=== PATIENT | female | born 2005 | race African-American/Black ===

== ENCOUNTER 2024-05-19 17:39 | Emergency (ER) | payer MEDICAID, SELFPAY ==
--- NOTE | ~2024-05-19 | XR_ITS ---
HISTORY: pain injury during step class. pain right 5th metacarpal COMPARISON: None TECHNIQUE: 3 views of the left hand were performed. FINDINGS: No acute fracture is identified. The joint spaces are preserved. The carpal arcs are intact. Bone mineralization is unremarkable. No significant soft tissue swelling. No radiopaque foreign body is identified. IMPRESSION: No acute fracture or dislocation within the left hand, as detailed above. Reviewed, dictated and finalized at location A. OSING MACHINE OPERATOR/TENDER
[2024-05-19 17:57] VITALS: BP 105/73; PULSE 66; RESP 16; TEMP 37.3; O2SAT 100
--- NOTE | 2024-05-19 17:58 | ED.GENADULT ---
HPI - General Adult General Chief complaint: Extremity Injury, Upper Stated complaint: INJURD R HAND Source: patient Mode of arrival: ambulatory Limitations: no limitations History of Present Illness HPI narrative: 18 y/o female presented for c/o right thumb pain and swelling after falling today at 1330. States she landed on the top of the hand. Denies pain at rest, rates 8/10 with movement. Denies bruising, deformity, numbness, tingling or weakness. Related Data Home Medications ?Medication ?Instructions ?Recorded ?Confirmed ?Last Taken ?Type cetirizine 10 mg tablet mg 05/19/24 Unknown History cholecalciferol (vitamin D3) 1,250 05/19/24 Unknown History mcg (50,000 unit) capsule hydroxyzine HCl 25 mg tablet mg 05/19/24 Unknown History Allergies Allergy/AdvReac Type Severity Reaction Status Date / Time No Known Allergies Allergy Verified 05/19/24 17:52 Review of Systems Review of Systems: CONSTITUTIONAL: Denies body aches, fever, chills CARDIOVASCULAR: Denies chest pain, palpitations, or edema. RESPIRATORY: Denies cough or dyspnea. SKIN: Denies wounds. MUSCULOSKELETAL: reports right thumb pain NEUROLOGIC: Denies numbness, tingling, or weakness. All systems reviewed & are unremarkable except as noted in HPI and below PMFSH Comments At time of signature, I have reviewed and agree with nursing past medical, surgical, social and family history unless otherwise noted. Please see nursing chart for further information. There is no relevant family history pertinent to the presenting complaint Exam Narrative: GENERAL: Well-appearing CHEST: Speaks in full sentences. No respiratory distress. HEART: Regular rate and rhythm. Normal and equal peripheral pulses. EXTREMITIES: right hand has normal strength and sensation. Right thumb has decreased range of motion due to pain with minimal movement; tender with light palpation over the skin. tenderness to 1st metacarpal area. No ecchymosis, No open wounds, or obvious deformity; alignment normal, pulse palpable and equal bilaterally, skin warm, dry, pink. Capillary refill less than 3 seconds. SKIN: Warm, dry NEURO: Alert and oriented x3. PSYCH: Normal mood and affect Course Course Emergency Course: Patient is aware of diagnosis, understands and agrees to treatment plan. Anticipatory guidance given. Patient agrees to follow-up as directed and is aware of reasons to seek care at the emergency department. Portions of this record may have been created with voice recognition software Level of Care: Express Care Visit Vital Signs Vital signs: Vital Signs Temperature 99.2 F 05/19/24 17:57 Pulse Rate 66 05/19/24 17:57 Respiratory Rate 16 05/19/24 17:57 Blood Pressure 105/73 05/19/24 17:57 Pulse Oximetry 100 05/19/24 17:57 Temperature 99.2 F 05/19/24 17:57 Pulse Rate 66 05/19/24 17:57 Respiratory Rate 16 05/19/24 17:57 Blood Pressure 105/73 05/19/24 17:57 Pulse Oximetry 100 05/19/24 17:57 Reviewed Medical Decision Making MDM Narrative Medical decision making narrative: Discussed physical exam findings and Xray.. EMILY applied. Advised supportive measures and signs/symptoms to go to the ER. Pt is appropriate for outpt treatment and f/u. Differential Diagnosis Differential Diagnosis: sprain/strain of wrist, Colles' fracture, wrist fracture, hand fracture, finger sprain, dislocation of finger, gout, cellulitis, arthritis, tendonitis Vital Signs Vital Signs: Vital Signs Temperature 99.2 F 05/19/24 17:57 Pulse Rate 66 05/19/24 17:57 Respiratory Rate 16 05/19/24 17:57 Blood Pressure 105/73 05/19/24 17:57 Pulse Oximetry 100 05/19/24 17:57 Temperature 99.2 F 05/19/24 17:57 Pulse Rate 66 05/19/24 17:57 Respiratory Rate 16 05/19/24 17:57 Blood Pressure 105/73 05/19/24 17:57 Pulse Oximetry 100 05/19/24 17:57 Imaging Data Radiologist's impression: Patient: Nanda Ball : 2005 MR#: [id number] Age: 18 Acct:[id number] Loc: [facility] ADM Date: 05/19/24Attending Dr: Ordering Physician: Vero Sellers APRN Date of Service: 05/19/24 Procedure(s): XR hand RT min 3V Accession Number(s): [id number] cc: Vero Sellers APRN; Chai,Noah~ HISTORY: pain injury during step class. pain right 5th metacarpal COMPARISON: None TECHNIQUE: 3 views of the left hand were performed. FINDINGS: No acute fracture is identified. The joint spaces are preserved. The carpal arcs are intact. Bone mineralization is unremarkable. No significant soft tissue swelling. No radiopaque foreign body is identified. IMPRESSION: No acute fracture or dislocation within the left hand, as detailed above. Discharge Plan Discharge Clinical Impression: Finger sprain Patient Disposition: Home, Self-Care Condition: Stable Instructions: Finger Sprain (ED) Additional Instructions: Rest and elevate the right hand; activity as tolerated - avoid pushing, pulling, lifting, throwing etc or anything that worsens the pain Apply ice 15-20 minute intervals several times a day Keep it wrapped with EMILY Motrin 600mg every 8 hours, alternate with Tylenol 1000mg every 8 hours as needed Follow up with your primary care provider as needed Go to the ER for worsening symptoms or concerns. Patient Language: Vietnamese Prescriptions: No Action cetirizine 10 mg tablet hydroxyzine HCl 25 mg tablet cholecalciferol (vitamin D3) 1,250 mcg (50,000 unit) capsule Follow-up/Referrals: Chai,Noah [Other] Stand Alone Forms: Work/School Release IP Time of Disposition: 18:36
== END 2024-05-19 18:37 | disposition home or self-care (01) ==
PROVIDERS: Emergency Provider Nurse Practitioner Family
DX: S63.601A Unspecified sprain of right thumb, initial encounter (principal); W19.XXXA Unspecified fall, initial encounter
CPT/HCPCS: 73130; 99203; G0463

== ENCOUNTER 2024-11-19 17:42 | Emergency (ER) | payer OTHER, SELFPAY ==
--- NOTE | 2024-11-19 17:45 | ED.FEMALEGU ---
HPI - Female Genitourinary General Chief complaint: Urogenital-Female Stated complaint: Std Test Time Seen by Provider: 11/19/24 17:54 Source: patient, RN notes reviewed and old records reviewed Mode of arrival: ambulatory Limitations: no limitations History of Present Illness HPI Narrative: 19-year-old female presents to the [facility] requesting a ?checkup, STD check. Patient has no symptoms. Just states ?I want to be checked. ? Discussed with patient we only test for 3, chlamydia, gonorrhea and Trichomonas. Patient states that she did want to be tested for ?everything ? Patient denied any abdominal pain. Denied any vaginal discharge, itching, rashes. Patient states that she just wants to get her ?checkup? to make sure. Related Data Home Medications ?Medication ?Instructions ?Recorded ?Confirmed ?Last Taken ?Type cetirizine 10 mg tablet mg 05/19/24 Unknown History cholecalciferol (vitamin D3) 1,250 05/19/24 Unknown History mcg (50,000 unit) capsule hydroxyzine HCl 25 mg tablet mg 05/19/24 Unknown History Allergies Allergy/AdvReac Type Severity Reaction Status Date / Time No Known Allergies Allergy Verified 05/19/24 17:52 Review of Systems Review of Systems: All systems reviewed & are unremarkable except as noted in HPI and below Constitutional: Constitutional: Reports no additional constitutional complaints ENT: Reports system reviewed and no additional complaints, except as documented Cardiovascular: Cardiovascular: Reports no additional cardiovascular complaints, Denies chest pain and Denies dyspnea Respiratory: Respiratory: Reports no additional respiratory complaints, Denies chest congestion, Denies cough and Denies dyspnea Musculoskeletal: Musculoskeletal: Reports no additional musculoskeletal complaints Integumentary/Breasts: Skin/Breast: Reports system reviewed and no additional complaints, except as docu PMFSH Comments At the time of my signature, I reviewed and agree with the nursing past medical, surgical, social, and family history. There is no relevant family history pertinent to the patient complaint. Exam Const: General: cooperative, healthy appearing, comfortable, no acute distress, well developed, alert and well nourished Nutritional Appearance: well nourished Orientation/consciousness: patient oriented x3 Limitations: no limitations HENMT: Head: normal to inspection Eyes: General: appearance normal, both eyes and all related structures Alignment and Position: alignment normal Neck: Neck: normal visual inspection, full ROM, no lymphadenopathy and no meningeal signs Chest: Chest palpation & inspection: normal inspection of the chest Resp: Effort & Inspection: normal respiratory effort and able to speak in complete sentences Cardio: Rate: regular rate Skin: General skin exam: normal color and no rashes or lesions noted Neuro: General: patient oriented x3, gait normal, moves all extremities and no meningeal signs Cognition (Neuro): normal cognition Speech: normal speech Gait exam (Neuro): Normal gait present Extrem: General: normal to inspection, full ROM, capillary refill normal and normal gait Psych: Appearance: grossly normal and well kempt Mental Status: mental status grossly normal Speech and movement: Normal speech and movement present and Clear speech present Affect: normal affect Attitude: cooperative Course Course Level of Care: Express Care Visit Vital Signs Vital signs: Vital Signs Temperature 98.5 F 11/19/24 17:54 Pulse Rate 62 11/19/24 17:54 Respiratory Rate 16 11/19/24 17:54 Blood Pressure 93/68 L 11/19/24 17:54 Pulse Oximetry 100 11/19/24 17:54 Temperature 98.5 F 11/19/24 17:54 Pulse Rate 62 11/19/24 17:54 Respiratory Rate 16 11/19/24 17:54 Blood Pressure 93/68 L 11/19/24 17:54 Pulse Oximetry 100 11/19/24 17:54 Reviewed MDM - Female Genitourinary MDM Narrative Medical decision making narrative: Patient sitting in exam room. Patient is nontoxic, vitals are stable. Patient presents requesting a ?complete checkup? and STI checks Discussed with patient that we will do an STI check, can take up to 72 hours to return however we only test for chlamydia, gonorrhea and Trichomonas for STIs. List of STI clinics given to patient. Patient denies any concerns or symptoms at this time Discharge instructions reviewed with patient, as well as provided in writing per nursing staff. The instructions also include specific and strict return/GO TO THE ER as well as f/u information. All questions have been answered, and the patient deny any further questions with discharge and discharge plan. Some parts of this dictation were generated by voice recognition software and may contain typographical and/or grammatical inaccuracies. Differential Diagnosis Differential diagnosis: Likely other (Well person, chlamydia, gonorrhea, Trichomonas) Critical Care Time Critical Care Time Critical Care Time: No Discharge Plan Discharge Clinical Impression: Concern about sexually transmitted disease in female without diagnosis Patient Disposition: Home Condition: Stable Instructions: Safe Sex Practices (ED) Additional Instructions: You have only been tested for chlamydia, gonorrhea and Trichomonas. Test results can take approximately 72 hours to return. If your concern for any STI or STDs other than the 3 we tested for please follow-up with an STD clinic. A list of clinics has been given to you You can also follow-up with your primary care provider or microfilm technician provider who can do complete testing Patient Language: Luxembourgish Prescriptions: No Action cetirizine 10 mg tablet hydroxyzine HCl 25 mg tablet cholecalciferol (vitamin D3) 1,250 mcg (50,000 unit) capsule Follow-up/Referrals: PHYSICIAN,FENCE MACHINE OPERATOR [Primary Care Provider] - Time of Disposition: 17:59
[2024-11-19 17:54] VITALS: BP 93/68; PULSE 62; RESP 16; TEMP 36.9; O2SAT 100
[2024-11-20 20:17] LABS: Trichomonas Vag PCR NOT DETECTED (NOT DETECTE)
== END 2024-11-19 18:02 | disposition home or self-care (01) ==
PROVIDERS: Emergency Provider Nurse Practitioner
DX: Z11.3 Encounter for screening for infections with a predominantly sexual mode of transmission (principal)
CPT/HCPCS: 87491; 87591; 87661; 99213; G0463

== ENCOUNTER 2025-01-05 22:30 | Emergency (ER) | payer OTHER, SELFPAY ==
[2025-01-05 22:39] VITALS: TEMP 36.6
[2025-01-05 22:40] VITALS: BP 124/97; PULSE 63; RESP 16; TEMP 36.8; O2SAT 100
--- NOTE | 2025-01-05 23:10 | ED_ITS ---
HPI - Dental/Oral General Chief complaint: Dental/Oral Stated complaint: Dental pain Time Seen by Provider: 01/05/25 22:38 Source: patient Mode of arrival: ambulatory Limitations: no limitations History of Present Illness HPI Narrative: This is a 19-year-old female that presents to the emergency department for toothache. Ongoing over the last couple of days. Denies fevers or swelling. MD Complaint: tooth pain Location: Tooth # (3) Related Data Home Medications ?Medication ?Instructions ?Recorded ?Confirmed ?Last Taken ?Type cetirizine 10 mg tablet mg 05/19/24 Unknown History cholecalciferol (vitamin D3) 1,250 05/19/24 Unknown History mcg (50,000 unit) capsule hydroxyzine HCl 25 mg tablet mg 05/19/24 Unknown Hist ory Allergies Allergy/AdvReac Type Severity Reaction Status Date / Time No Known Allergies Allergy Verified 01/05/25 22:31 Review of Systems Review of Systems: All systems reviewed & are unremarkable except as noted in HPI and below PMFSH Past Medical History Medical History (Updated 01/05/25 @ 23:20 by Krupa Gutierrez PA-C) No active medical problems Exam Narrative: GENERAL: Well-appearing, well-nourished, and in no acute distress. HEAD: Normocephalic, atraumatic. EYES: EOMI. ENT: Nares clear, no rhinorrhea or epistaxis. Mucous membranes moist. Oropharynx without tonsillar hypertrophy exudate or other lesions. Tooth number 3 is tender to palpation without surrounding erythema or edema to suggest abscess NECK: Supple. No adenopathy or masses. CHEST: No respiratory distress. HEART: Regular rate EXTREMITIES: Normal range of motion. No edema. SKIN: Warm, dry, no rash. NEURO: No focal deficits. Alert and oriented x3. PSYCH: Normal mood and affect Course Vital Signs Vital signs: Vital Signs Temperature 97.8 F 01/05/25 22:39 Temperature 98.3 F 01/05/25 22:40 Pulse Rate 63 01/05/25 22:40 Respiratory Rate 16 01/05/25 22:40 Blood Pressure 124/97 H 01/05/25 22:40 Pulse Oximetry 100 01/05/25 22:40 Oxygen Delivery Room Air 01/05/25 22:40 MDM - Dental/Oral MDM Narrative Medical decision making narrative: Patient presents the emergency department for toothache. She is afebrile and nontoxic appearing. No sign of abscess on exam. Will be started on oral antibiotic. She is to follow up with a dentist. She was given warnings to return to the ER Differential Diagnosis Differential diagnosis: Likely dental caries, toothache, dental abscess and fracture of tooth Critical Care Time Critical Care Time Critical Care Time: No Discharge Plan Discharge Clinical Impression: Toothache Patient Disposition: Home Condition: Stable Instructions: Antibiotic Form, Toothache (ED) Additional Instructions: Return to the Emergency Department if you experience fever >101, increasing swelling and redness of your tooth, or any other symptoms that are concerning to you Take antibiotic as prescribed. Tylenol or Ibuprofen as needed for pain. Follow up with a dentist Patient Language: Cape Verdean Prescriptions: New amoxicillin-pot clavulanate 875-125 mg tablet 1 tablet PO Q12H 7 Days Qty: 14 0RF No Action cetirizine 10 mg tablet hydroxyzine HCl 25 mg tablet cholecalciferol (vitamin D3) 1,250 mcg (50,000 unit) capsule Follow-up/Referrals: PHYSICIAN,STUDIO ASSISTANT [Primary Care Provider, Internal Medicine]
== END 2025-01-05 23:54 | disposition home or self-care (01) ==
LOC: ANHED 23:38
PROVIDERS: Emergency Provider Physician Assistant
DX: K08.89 Other specified disorders of teeth and supporting structures (principal)
CPT/HCPCS: 99283

== ENCOUNTER 2025-04-07 09:52 | Emergency (ER) | payer OTHER, SELFPAY ==
--- NOTE | 2025-04-07 09:57 | ED_ITS ---
HPI - URI/Sore Throat General Chief Complaint: Upper Respiratory Infection Stated Complaint: COUGH/SORE THROAT/HOT & COLD Time Seen by Provider: 04/07/25 10:10 Source: patient Mode of arrival: ambulatory Limitations: no limitations History of Present Illness HPI Narrative: Nanda is a 19-year-old female patient presenting to the clinic today with complaints of cough, runny nose, sore throat, in cold and hot flashes x2 days. No known fevers, chills, body aches. Has been given [id number]-[id number] cough and cold medications for her symptoms. Related Data Home Medications ?Medication ?Instructions ?Recorded ?Confirmed ?Last Taken ?Type cetirizine 10 mg tablet mg 05/19/24 Unknown History cholecalciferol (vitamin D3) 1,250 05/19/24 Unknown History mcg (50,000 unit) capsule hydroxyzine HCl 25 mg tablet mg 05/19/24 Unknown Hist ory Allergies Allergy/AdvReac Type Severity Reaction Status Date / Time No Known Allergies Allergy Verified 04/07/25 10:02 Review of Systems Review of Systems: Pertinent positives per HPI. Patient denies any fever, chills, rash, headache, visual changes, dizziness, cough, shortness of breath, chest pain, palpitations, nausea, vomiting, diarrhea, constipation, abdominal pain, or any urinary issues. [facility] Past Medical History Medical History (Updated 04/07/25 @ 10:20 by Lucas Gutierrez APRN) No active medical problems Comments At the time of my signature, I reviewed and agree with the nursing past medical, surgical, social, and family history. There is no relevant family history pertinent to the patient complaint. Exam Narrative: General: Well-developed, well nourished, in no apparent distress Head: Normocephalic, atraumatic Eyes: Pupils equally round and reactive to light bilaterally, EOM intact, sclera and conjunctive clear, no discharge, lids normal Ears: TMs intact and clear, ear canals clear, no drainage, grossly hearing normal. Nose: Nares patent, clear nasal discharge mild inflammation, no sinus tendernes s. Mouth: Oral pharynx mildly red without lesions or masses, good dentition, MMM. Postnasal drip Neck: Supple, trachea midline, no enlargement of anterior or posterior cervical nodes, no thyroid masses or goiter palpable. Cardio: Regular rate and rhythm, s1 and s2 normal, no murmur appreciated. Resp: Clear to auscultation bilaterally, no rhonchi, rales, wheezing or rubs Course Course Level of Care: Express Care Visit MDM MDM Narrative Medical decision making narrative: At the time of visit patient is resting comfortably on the exam table. Patient appears to be nontoxic. Complaints of cough, runny nose, sore throat, in cold and hot flashes x2 days. No known fevers, chills, body aches. Has been given [id number] cough and cold medications for her symptoms. COVID, flu, and strep test were ordered. On exam patient has bilateral TMs intact and clear, clear nasal drainage, mild anterior turbinate inflammation, oral pharynx mildly red with postnasal drip, no cervical lymphadenopathy, lung sounds are clear, heart rates regular rate and rhythm. Labs: COVID, influenza, and strep test were negative in the clinic today. We will send strep for culture. Plan: I suspect patient has URI/pharyngitis/viral syndrome. We will send strep for culture. Work note was given. Supportive measures were discussed with the patient and they voiced understanding discharge instructions and agrees to treatment plan. Return precautions reviewed Differential Diagnosis Differential Diagnosis: Differential diagnostic considerations for upper respiratory infection include upper respiratory infection, croup, otitis media, sinusitis, viral infection, bronchitis, influenza, pharyngitis, strep, uvulitis. Discharge Plan Discharge Clinical Impression: Viral infection Upper respiratory infection Qualifiers: URI type: unspecified URI Qualified Code(s): J06.9 - Acute upper respiratory infection, unspecified Pharyngitis Qualifiers: Pharyngitis/tonsillitis etiology: unspecified etiology Qualified Code(s): J02.9 - Acute pharyngitis, unspecified Patient Disposition: Home Condition: Stable Instructions: Antibiotic Form, Pharyngitis (ED), Viral Syndrome (ED), Cold Symptoms (ED) Additional Instructions: COVID, flu, and strep test were all negative in the clinic today. We will send strep for culture if this comes back positive we will contact him place you on antibiotics at that time. Lung sounds are clear and there is no sign of bacterial infection May take DayQuil/NyQuil for cold/flu symptoms Increase fluids and stay well hydrated May take Tylenol or motrin as directed on bottle for pain/fever May use Flonase 1 spray in each nare daily May take OTC antihistamines such as Zyrtec or Claritin daily as directed on bottle May apply Vicks vapor rub to chest to open sinuses Sinus rinses for congestion Cepacol spray, cough drops, throat lozenges, warm tea with honey/lemon, gargle salt water to soothe throat BRAT diet for diarrhea Clear liquids x 24 hours then advance as tolerated for nausea/vomiting Go to the ED if you develop a worsening in your condition- high fever not controlled by Tylenol or Motrin, dehydration, weakness, lethargy, shortness of breath, or chest pain. Follow up with your PCP in 3-5 days if symptoms persist. Patient Language: Sammarinese Prescriptions: No Action cetirizine 10 mg tablet hydroxyzine HCl 25 mg tablet cholecalciferol (vitamin D3) 1,250 mcg (50,000 unit) capsule Follow-up/Referrals: PHYSICIAN,LAN SPECIALIST [Primary Care Provider, Internal Medicine] Stand Alone Forms: Work/School Release IP Time of Disposition: 10:20 Quality NIHSS Nursing Documentation ED NIHSS nursing documentation: reviewed/agree
[2025-04-07 10:05] VITALS: BP 103/69; PULSE 99; RESP 16; TEMP 37.4; O2SAT 99
[2025-04-07 10:14] LABS: EDSTREPNEGPOS1 Negative (Negative)
[2025-04-07 10:22] LABS: EDCOVIDSCREEN Negative (Negative); EDINFLUASCREEN Negative (Negative); EDINFLUBSCREEN Negative (Negative)
== END 2025-04-07 10:23 | disposition home or self-care (01) ==
PROVIDERS: Emergency Provider Nurse Practitioner Family
DX: B34.9 Viral infection, unspecified (principal); J06.9 Acute upper respiratory infection, unspecified; J02.9 Acute pharyngitis, unspecified; Z20.822 Contact with and (suspected) exposure to COVID-19
CPT/HCPCS: 87081; 87426; 87804; 87880; 99213; G0463

== ENCOUNTER 2025-04-10 01:42 | Emergency (ER) | payer OTHER, SELFPAY ==
--- NOTE | ~2025-04-10 | XR_ITS ---
Examination: XR chest 2V Clinical History: cough, shortness of breath Comparison: None Technique: PA and Lateral Findings: Cardiomediastinal silhouette normal size and configuration. Lungs clear. No acute bony abnormality. IMPRESSION: 1. No acute cardiopulmonary findings. Reviewed, dictated and finalized at location [facility]
[2025-04-10 01:49] VITALS: BP 116/75; PULSE 88; RESP 16; TEMP 36.6; O2SAT 92
[2025-04-10 02:25] VITALS: O2SAT 99
--- NOTE | 2025-04-10 02:50 | ED_ITS ---
HPI - URI/Sore Throat General Chief Complaint: Upper Respiratory Infection Stated Complaint: flu like sx Time Seen by Provider: 04/10/25 02:48 Source: patient Mode of arrival: ambulatory Limitations: no limitations History of Present Illness HPI Narrative: This is a 19-year-old female with no significant past medical history who presents to the ED for flu-like symptoms. Patient states for the past 5 days she has been having cough, congestion. She states for the past couple days, cough has become productive of green sputum and she has also developed a sore throat. Denies fevers, chills. No known sick contacts. Related Data Home Medications ?Medication ?Instructions ?Recorded ?Confirmed ?Last Taken ?Type cetirizine 10 mg tablet mg 05/19/24 Unknown History cholecalciferol (vitamin D3) 1,250 05/19/24 Unknown History mcg (50,000 unit) capsule hydroxyzine HCl 25 mg tablet mg 05/19/24 Unknown Hist ory Allergies Allergy/AdvReac Type Severity Reaction Status Date / Time No Known Allergies Allergy Verified 04/10/25 01:43 Review of Systems Review of Systems: Gen.: Denies fevers or chills Eyes: Denies eye pain or visual change ENT: As per HPI Respiratory: As per HPI CV: Denies chest pain or palpitations GI: Denies abdominal pain nausea, emesis or diarrhea denies burning, urgency, frequency or hematuria Musculoskeletal: Denies back pain or muscle pain Neuro: Denies numbness, tingling, weakness or focal weakness Skin: Denies rash Except as documented, all other systems reviewed and negative [facility] Past Medical History Medical History No active medical problems Exam Narrative: APPEARANCE: No acute distress, nontoxic, resting in bed EYES: EOMI HEENT: Normocephalic, atraumatic, mild posterior oropharyngeal erythema without exudates RESPIRATORY: No respiratory distress Clear to auscultation bilaterally with no rhonchi wheezing or rales. CARDIOVASCULAR: Regular rate and rhythm without murmurs rubs or gallops. ABDOMINAL: Soft, nontender, nondistended, no rebound or guarding MUSCULOSKELETAl: Moves all extremities. No clubbing, cyanosis or edema. NEURO: Awake and alert. Following commands, speech normal, no focal deficits SKIN:: Warm, dry. No rashes lesions or abrasions PSYCHIATRIC: Normal affect/mood, Course Vital Signs Vital signs: Vital Signs Temperature 98 F 04/10/25 01:49 Pulse Rate 88 04/10/25 01:49 Respiratory Rate 16 04/10/25 01:49 Blood Pressure 116/75 04/10/25 01:49 Pulse Oximetry 92 04/10/25 01:49 Oxygen Delivery Room Air 04/10/25 01:49 Temperature 98.5 F 04/10/25 04:24 Pulse Rate 77 04/10/25 04:24 Respiratory Rate 14 04/10/25 04:24 Blood Pressure 110/74 04/10/25 04:24 Pulse Oximetry 99 04/10/25 04:24 Oxygen Delivery Room Air 04/10/25 02:25 [facility] Narrative Medical decision making narrative: 19-year-old female presenting for flu-like symptoms. On initial evaluation patient was in no acute distress afebrile, hemodynamic stable. Differentials include but are not limited to: Viral syndrome, strep pharyngitis, viral pharyngitis, sinusitis, laryngitis, CHIEF PSYCHOLOGIST, RPA, pneumonia, bronchitis Notable exam findings: Mild posterior oropharyngeal erythema. Heart and lungs clear. I personally reviewed the patient's lab result. Notable lab findings: COVID/flu/RSV negative. Strep negative. Monospot negative. I personally reviewed the patient's images and interpret as follows: Chest x- ray showed possible right lower lobe infiltrate Symptoms and x-ray are consistent with a community-acquired pneumonia. Patient was given the 1st dose of amoxicillin here in the ED. She was given prescription for amoxicillin. She was advised follow-up with her PCP in the next week for re-evaluation. Patient was agreeable to this plan. Given strict return precautions. Differential Diagnosis Differential Diagnosis: Viral syndrome, strep pharyngitis, viral pharyngitis, sinusitis, laryngitis, CHIEF PSYCHOLOGIST, RPA, pneumonia, bronchitis Lab Data [facility] Lab Attestation statement: I personally reviewed the patient's lab results. Labs: Lab Results 04/10/25 04/10/25 04/10/25 Range/Units 02:12 02:14 03:12 Monoscreen Negative (Negative) Influenza A (RT-PCR) Negative (Negative) Influenza B (RT-PCR) Negative (Negative) RSV (RT-PCR) Negative (Negative) SARS-CoV-2 RNA (RT-PCR) Negative (Negative) Group A Strep (PCR) Not detected (Negative) Discharge Plan Discharge Clinical Impression: Community acquired pneumonia Qualifiers: Laterality: right Lung location: lower lobe of lung Qualified Code(s): J18.9 - Pneumonia, unspecified organism Pharyngitis Qualifiers: Pharyngitis/tonsillitis etiology: unspecified etiology Qualified Code(s): J02.9 - Acute pharyngitis, unspecified Patient Disposition: Home Condition: Stable Instructions: Antibiotic Form, Community Acquired Pneumonia (DC) Additional Instructions: Take amoxicillin as prescribed. Try sore throat sprays as discussed. You may take Tylenol and ibuprofen the pain. Follow-up with your PCP in the next week for re-evaluation. Return to the ED for any new or worsening symptoms. For pain, discomfort or temperature greater than or equal to 100.8 ?F please alternate the following 2 medications as needed. First medication- acetamino phen/Tylenol- 1000mg every 6-8 hours as needed for above indications. Second medication- ibuprofen/Motrin-600mg every 6-8 hours as needed for above indication. Patient Language: Congolese Prescriptions: New amoxicillin 500 mg capsule 1,000 mg PO Q12H 5 Days Qty: 18 0RF No Action cetirizine 10 mg tablet hydroxyzine HCl 25 mg tablet cholecalciferol (vitamin D3) 1,250 mcg (50,000 unit) capsule Follow-up/Referrals: Lisa Jiménez MD [Physician, Family Practice] PHYSICIAN,REGIONAL LIAISON [Non-Staff, Internal Medicine]
[2025-04-10 02:53] LABS: Strep Group A RT-PCR NOT DETECTED (Negative)
[2025-04-10 03:04] LABS: Influenza A QL RT-PCR Negative (Negative); Influenza B QL RT-PCR Negative (Negative); RSV RNA, RT-PCR Negative (Negative); SARS-CoV-2 RNA PCR Negative (Negative)
[2025-04-10 03:33] LABS: Negative Monotest Control Negative (Negative); Positive Monotest Control Positive (Positive)
[2025-04-10 03:45] VITALS: O2SAT 100
[2025-04-10 04:24] VITALS: BP 110/74; PULSE 77; RESP 14; TEMP 36.9; O2SAT 99
== END 2025-04-10 04:25 | disposition home or self-care (01) ==
PROVIDERS: Emergency Provider Student in an Organized Health Care Education/Training Program
DX: J18.9 Pneumonia, unspecified organism (principal); J02.9 Acute pharyngitis, unspecified; Z20.822 Contact with and (suspected) exposure to COVID-19
CPT/HCPCS: 36415; 71046; 86308; 87637; 87651; 99283; A9270